=== PATIENT | male | born 1955 | race African-American/Black ===

== ENCOUNTER 2021-02-20 10:04 | Outpatient (CLI) | payer MEDICARE, OTHER ==
[~2021-02-20 10:04] MED LIST: AZIT250T89 PO; OMNICEF PO
== END 2021-02-20 23:59 | disposition home or self-care (01) ==
LOC: RAD 10:04
PROVIDERS: ATTEND Physical Medicine & Rehabilitation Pain Medicine
DX: M25.561 Pain in right knee (principal)